=== PATIENT | female | born 1990 | race Caucasian/White ===

== ENCOUNTER 2019-11-06 18:24 | Emergency (ER) | payer OTHER ==
[~2019-11-06] VITALS: Ht 177.8 cm; Wt 74.8 kg
--- OUTSIDE RECORDS SUMMARY | ~2019-11-06 | XMS | Clinical Summary ---
Demographics + + + | Address | [address] | | | [address] | | | [place] [address] | + + + | Home Phone | | + + + | Preferred Language | Unknown | + + + | Marital Status | Unknown | + + + | Sabianism Affiliation | Unknown | + + + | Race | Unknown | + + + | Ethnic Group | Unknown | + + + Author + + + | Author | [facility] | | | and [place] | + + + | Organization | [facility] | | | and [place] | + + + | Address | Unknown | + + + | Phone | Unavailable | + + + Care Team Providers + +------+ + | Care Area Operations Manager Name | Role | Phone | + +------+ + PCP | Unavailable | + +------+ + Allergies Not on File Medications Not on file Active Problems Not on file Social History + +-------+ +--------+------+ | Tobacco Use | Types | Packs/Day | Years | Date | | | | | Used | | + +-------+ +--------+------+ | Never Assessed | | | | | + +-------+ +--------+------+ + + + | Sex Assigned at | Date Recorded | | | | + + + | Not on file | | + + + Last Filed Vital Signs Not on file Plan of Treatment + + +-------+ + | Health Maintenance | Due Date | Last | Comments | | | | Done | | + + +-------+ + | Vaccine: | | | | | Dtap/Tdap/Td (1 - | 2 | | | | Tdap) | | | | + + +-------+ + | Cervical Cancer | | | | | Screening (Pap) | 4 | | | + + +-------+ + | Vaccine: Influenza | | | | | (#1) | 0 | | | + + +-------+ + Results Not on filefrom Last 3 Months"
--- OUTSIDE RECORDS SUMMARY | ~2019-11-06 | XMS | Encounter Summary ---
Demographics + + + | Address | [address] | | | [address] | | | [place] [address] | + + + | Home Phone | | + + + | Preferred Language | Unknown | + + + | Marital Status | Unknown | + + + | Sabianist Affiliation | Unknown | + + + | Race | Unknown | + + + | Ethnic Group | Unknown | + + + Author + + + | Author | [facility] | | | and [place] | + + + | Organization | [facility] | | | and [place] | + + + | Address | Unknown | + + + | Phone | Unavailable | + + + Care Team Providers + +------+ + | Care Front Desk Lead Name | Role | Phone | + +------+ + PCP | Unavailable | + +------+ + Encounter Details +--------+---------+ + + + | Date | Type | Department | Care Team | Description | +--------+---------+ + + + | 02/22/ | Office | [facility] | Marsha Solomon, | | | 2015 | Visit | [facility] | MD [address] | | | | | CLINICAL LAB SERVS | [place], [place] | | | | | [address] [place] | [address] | | | | | [place], [place] | [phone] | | | | | [address] | | | | | | [phone] | | | +--------+---------+ + + + Social History + +-------+ +--------+------+ | Tobacco [...] on file | | + + + documented as of this encounter Plan of Treatment Not on filedocumented as of this encounter Procedures + +--------+ + + + | Procedure Name | Priori | Date/Time | Associated Diagnosis | Comments | | | ty | | | | + +--------+ + + + | CULTURE, GENITAL, | Routin | 02/23/2016 | | Results for this | | SMEAR | e | 2:41 PM | | procedure are in the | | | | PST | | results section. | + +--------+ + + + documented in this encounter Results Culture, Genital, Smear (02/23/2016 2:41 PM PST) + + + + + + | Component | Value | Ref Range | Performed | Pathologist | | | | | At | Signature | + + + + + + | FINAL | 1+ Beta Streptococcus | | [facility] | | | REPORT | Group B 1+ Usual [place] | | [facility] | | | | No Neisseria gonorrhoeae | | CORE | | | | Isolated | | LABORATORY | | + + + + + + | Gram Stain | 1+ Polymorphonuclear | | [facility] | | | | Leukocytes 2+ Squamous | | [facility] | | | | Epithelial Cells 2+ Gram | | CORE | | | | Positive Cocci 2+ Gram | | LABORATORY | | | | Positive Rods Shift in | | | | | | [place] Indeterminant for | | | | | | Bacterial Vaginosis | | | | | | Comment: Performed by | | | | | | [facility]/[address] [place] [address] [place] | | | | | | [place] [address] | | | | + + + + + + + + | Specimen | + + | Specimen from | | genital system | | (specimen) | + + + + + + + | Performing | Address | City/State/Zipcode | Phone Number | | Organization | | | | + + + + + | [facility] | [address] [place] [address] [place] | [place] [address] | [phone] | | [facility] | | | | | LABORATORY | | | | + + + + + documented in this encounter Visit Diagnoses Not on filedocumented in this encounter"
--- OUTSIDE RECORDS SUMMARY | ~2019-11-06 | XMS | Encounter Summary ---
Demographics + + + | Address | [address] | | | [address] | | | [place] [address] | + + + | Home Phone | | + + + | Preferred Language | Unknown | + + + | Marital Status | Unknown | + + + | Gnosticist Affiliation | Unknown | + + + | Race | Unknown | + + + | Ethnic Group | Unknown | + + + Author + + + | Author | [facility] | | | and [place] | + + + | Organization | [facility] | | | and [place] | + + + | Address | Unknown | + + + | Phone | Unavailable | + + + Care Team Providers + +------+ + | Care Wave Solder Offbearer Name | Role | Phone | + +------+ + PCP | Unavailable | + +------+ + Encounter Details +--------+ + + + + | Date | Type | Department | Care Team | Description | +--------+ + + + + | 02/22/ | Hospital | [facility] | Marsha Solomon, | | | 2016 | Encounter | [facility] | [address] | | | | | CLINICAL LAB SERVS | [address] [facility] | | | | | [address] | [place] [address] | | | | | [place], [place] | [phone] | | | | | [address] | | | | | | [phone] | | | +--------+ + + + + Social History + +-------+ [...] Not on filedocumented as of this encounter Visit Diagnoses Not on filedocumented in this encounter"
--- OUTSIDE RECORDS SUMMARY | ~2019-11-06 | XMS | Encounter Summary ---
Demographics + + + | Address | [address] | | | [address] | | | [place] [address] | + + + | Home Phone | | + + + | Preferred Language | Unknown | + + + | Marital Status | Unknown | + + + | Quaker Affiliation | Unknown | + + + | Race | Unknown | + + + | Ethnic Group | Unknown | + + + Author + + + | Author | [facility] | | | and [place] | + + + | Organization | [facility] | | | and [place] | + + + | Address | Unknown | + + + | Phone | Unavailable | + + + Care Team Providers + +------+ + | Care Airport Security Screener Name | Role | Phone | + +------+ + PCP | Unavailable | + +------+ + Encounter Details +--------+---------+ + + + | Date | Type | Department | Care Team | Description | +--------+---------+ + + + | 02/22/ | Office | [facility] | Marsha Solomon, | | | 2015 | Visit | [facility] | MD [address] | | | | | CLINICAL LAB SERVS | [place], [place] | | | | | [address] [place] | [address] | | | | | [place], [place] | [phone] | | | | | [address] | | | | | | [phone] | | | +--------+---------+ + + + [...] | + +--------+ + + + | URINALYSIS WITH | Routin | 02/23/2016 | | Results for this | | MICROSCOPIC | e | 10:15 AM | | procedure are in the | | | | PST | | results section. | + +--------+ + + + | CULTURE, URINE | Routin | 02/23/2016 | | Results for this | | | e | 10:15 AM | | procedure are in the | | | | PST | | results section. | + +--------+ + + + documented in this encounter Results Culture, Urine (02/23/2016 10:15 AM PST) + + + + + + | Component | Value | Ref Range | Performed | Pathologist | | | | | At | Signature | + + + + + + | FINAL | 10,000 cfu/ml Mixed Gram | | [facility] | | | REPORT | Positive Organisms No | | [facility] | | | | Identification or | | CORE | | | | Sensitivities Performed. | | LABORATORY | | | | Comment: Performed by | | | | | | [facility] | | | | | | [place] [address] | | | | + + + + + + + + | Specimen | + + | Urine specimen | | (specimen) | + + + + + + + | Performing | Address | City/State/Zipcode | Phone Number | | Organization | | | | + + + + + | [facility] | [address] [place] [address] [place] | [place] [address] | [phone] | | [facility] | | | | | LABORATORY | | | | + + + + + Urinalysis With Microscopic (02/23/2016 10:15 AM PST) + + + +-------- -----+ + | Component | Value | Ref Range | Perform ed | Pathologist | | | | | At | Signature | + + + +-------- -----+ + | Color, | Light_Yellow | | [facility] | | | Urine | | | [facility] | | | | | | CORE | | | | | | [facility] | | + + + +-------- -----+ + | Clarity, | Clear | | [facility] | | | Urine | | | [facility] | | | | | | CORE | | | | | | [facility] | | + + + +-------- -----+ + | Glucose, | Negative | Negative mg/dL | [facility] | | | Urine | | | [facility] | | | | | | CORE | | | | | | [facility]AT [facility] | | + + + +-------- -----+ + | Bilirubin, | Negative | Negative | [facility] | | | Urine | | | [facility] | | | | | | CORE | | | | | | [facility] | | + + + +-------- -----+ + | Urobilinoge | <2.0 | <2.0 mg/dL | [facility] | | | n, Urine | | | [facility] | | | | | | CORE | | | | | | [facility] | | + + + +-------- -----+ + | Ketones, | Negative | Negative mg/dL | [facility] | | | Urine | | | [facility] | | | | | | CORE | | | | | | [facility] | | + + + +-------- -----+ + | Specific | 1.011 | 1.005 - 1.030 | [facility] | | | [place], | | | [facility] | | | Urine | | | CORE | | | | | | LAB[facility]AT [facility] | | + + + +-------- -----+ + | pH, Urine | 5.0 | 5.0 - 9.0 | [facility] | | | | | | [facility] | | | | | | CORE | | | | | | [facility]AT [facility] | | + + + +-------- -----+ + | Protein, | Negative | Negative mg/dL | [facility] | | | Urine | | | [facility] | | | | | | CORE | | | | | | [facility] | | + + + +-------- -----+ + | Nitrite, | Negative | Negative | [facility] | | | Urine | | | [facility] | | | | | | CORE | | | | | | [facility] | | + + + +-------- -----+ + | Blood, | Negative | Negative | [facility] | | | Urine | | | [facility] | | | | | | CORE | | | | | | [facility] | | + + + +-------- -----+ + | Leukocyte | Negative | Negative | [facility] | | | Esterase, | | | [facility] | | | Urine | | | CORE | | | | | | LAB[facility]AT [facility] | | + + + +-------- -----+ + | Squamous | <1 | 0 - 2 /hpf | [facility] | | | Epithelial | | | [facility] | | | Cells, | | | CORE | | | Urine | | | [facility] | | + + + +-------- -----+ + | White Blood | <1 | 0 - 5 /hpf | [facility] | | | Cells, | | | [facility] | | | Urine | | | CORE | | | | | | [facility] | | + + + +-------- -----+ + | Red Blood | 1 | 0 - 2 /hpf | [facility] | | | Cells, | | | [facility] | | | Urine | | | CORE | | | | | | [facility] | | + + + +-------- -----+ + | Bacteria, | None | None | [facility] | | | Urine | | | [facility] | | | | | | CORE | | | | | | LAB[facility]AT OR[facility] | | + + + +-------- -----+ + | Amorphous | None | None | [facility] | | | Crystals, | | | [facility] | | | Urine | | | CORE | | | | | | LAB[facility]AT [facility] | | + + + +-------- -----+ + | Mucus, | NoneComment: Performed | None | [facility] | | | Urine | by [facility]/[address] | | [facility] | | | | [place] [address] | | CORE | | | |Performed by [facility]/[address] [place] [address] | | [facility] | | | | | | | | + + + +-------- -----+ + + + | Specimen | + + | Urine specimen | | (specimen) | + + + + + + + | Performing | Address | City/State/Zipcode | Phone Number | | Organization | | | | + + + + + | [facility] [address] | [address] | [place] [address] | [phone] | | [facility] | | | | | LABORATORY | | | | + + + + + documented in this encounter Visit Diagnoses Not on filedocumented in this encounter"
[~2019-11-06 18:24] MED LIST: CYCLOBENZAPRINE5 MG PO; MELOXICAM7.5 MG PO; ULTRAM50 MG PO
[2019-11-06] MEDS ORDERED: CYCLOBENZAPRINE10 MG PO (21:10)
== END 2019-11-06 21:36 | disposition home or self-care (01) ==
LOC: ED 18:24
DX: S39.012A Strain of muscle, fascia and tendon of lower back, initial encounter (principal); Z88.5 Allergy status to narcotic agent; X50.0XXA Overexertion from strenuous movement or load, initial encounter
CPT/HCPCS: 99283